=== PATIENT | female | born 1990 | race Caucasian/White ===

== ENCOUNTER → 2024-10-16 | Outpatient (CLI) | payer MEDICAID, SELFPAY ==
[2024-10-16 18:19] LABS: Erythrocyte Sedimentation Rate 6 mm/hr (0-30)
[2024-10-16 18:31] LABS: CRP 8.62 mg/L (0.0-3.0); Syphilis Antibodies Nonreactive (Nonreactive)
== END | disposition home or self-care (01) ==
LOC: MTLAB 15:54
PROVIDERS: PCP Family Medicine
DX: G51.0 Bell's palsy (principal)
CPT/HCPCS: 36415; 82784; 83883; 84165; 85652; 86140; 86160; 86334; 86617; 86780

== ENCOUNTER → 2024-11-26 | Outpatient (CLI) | payer MEDICAID, SELFPAY ==
--- NOTE | 2024-11-26 12:05 | MRI_ITS ---
PROCEDURE: BRAIN W/WO CONTRAST 11/26/2024 MRI orbits without and with contrast REASON FOR EXAM: RIGHT 7; RIGHT 3,4; HX OF LYME TECHNIQUE: Routine brain MRI without and with intravenous contrast. Multiplanar and multisequence images were obtained. 15 cc of Clariscan utilized FINDINGS: There is no abnormal diffusion. There is no hydrocephalus. The brainstem and cerebellum are unremarkable. There is benign fluid in the right petrous apex. No pathologic flow voids. There is also right posterior ethmoid air cell opacification. There is no intracranial demyelination or hemorrhage. Postcontrast imaging of the whole brain is unremarkable. There is no dural sinus thrombosis Orbital imaging demonstrates normal optic chiasm. No optic nerve demyelination. No abnormal optic nerve or optic chiasm enhancement. No suprasellar masses. No extraocular muscle enlargement. Symmetric lacrimal glands. MRI/Brain W/WO Contrast IMPRESSION: Brain and orbits unremarkable. Benign fluid in the right petrous apex. No pat hologic enhancement. Reading Location: [facility]
== END | disposition home or self-care (01) ==
LOC: MRI 12:01
PROVIDERS: PCP Family Medicine
DX: G51.0 Bell's palsy (principal)
CPT/HCPCS: 70553; A9575